=== PATIENT | male | born 1970 | race Caucasian/White ===

== ENCOUNTER 2020-01-02 12:57 | Emergency (ER) | payer OTHER ==
[~2020-01-02] VITALS: Ht 177.8 cm; Wt 86.4 kg
[2020-01-02] MEDS ORDERED: WATER IV ONE ×3 (13:15→19:15)
[2020-01-02] MEDS ORDERED: ACETYLCYSTEINE IV ONE ×3 (13:15→19:15)
[2020-01-02] MEDS ORDERED: DEXTROSE 5% IV ONE ×3 (13:15→19:15)
[2020-01-02 13:36] LABS: BASOPHILS % (AUTO) 0.4 % (0.0-2.0); EOSINOPHILS % (AUTO) 0.1 % (1.0-6.0); HEMATOCRIT 45.3 % (41-53); HEMOGLOBIN 15.8 g/dL (13.5-17.5); LYMPHOCYTES # (AUTO) 1.2 K/uL (1.0-4.8); LYMPHOCYTES % (AUTO) 10.3 % (22.0-44.0); MEAN CORPUSCULAR HEMOGLOBIN 31.8 pg (26.0-34.0); MEAN CORPUSCULAR HGB CONC 34.9 G/dL (31.0-37.0); MEAN CORPUSCULAR VOLUME 91 fL (80-100); MONOCYTES # (AUTO) 0.6 K/uL (0.1-1.0); MONOCYTES % (AUTO) 5.1 % (2.0-9.0); NEUTROPHILS # (AUTO) 9.4 K/uL (1.8-7.7); NEUTROPHILS % (AUTO) 84.1 % (40.0-70.0); PLATELET COUNT (AUTO) 342 K/uL (150-450); RED BLOOD CELL COUNT(AUTO) 4.97 MIL/uL (4.50-5.90); RED CELL DISTRIBUTION WIDTH 12.7 % (11.5-14.5)
[2020-01-02] MEDS ORDERED: LISI-661 PO (13:37)
[2020-01-02 13:44] LABS: ANION GAP 19 mmol/L (8-16); CALCIUM, TOTAL 9.1 mg/dL (8.8-10.5); CARBON DIOXIDE 19 mmol/L (22-29); CHLORIDE 96 mmol/L (98-107); CREATININE 1.37 mg/dL (0.60-1.30); GLOMERULAR FILTR. RATE CALC 56 mL/min (>60); GLUCOSE,RANDOM 194 mg/dL (70-110); POTASSIUM 3.4 mmol/L (3.5-5.1); SODIUM SERUM 134 mmol/L (136-145); UREA NITROGEN, BLOOD 14 mg/dL (7-18)
[2020-01-02] MEDS: ACETYLCYSTEINE IV ONE ×2 (13:47→14:48)
[2020-01-02] MEDS: DEXTROSE 5% IV ONE ×2 (13:47→14:48)
[2020-01-02] MEDS: WATER IV ONE ×2 (13:47→14:48)
[2020-01-02] MEDS: SODIUM CHLORIDE 0.9% 1,000 ML IV ONE (13:47)
[2020-01-02 13:57] LABS: SALICYLATE 0.8 mg/dL (2.8-20.0)
[2020-01-02 14:07] LABS: ALANINE AMINOTRANSFERASE 68 U/L (12-78); ALBUMIN 4.3 g/dL (3.4-5.0); ALKALINE PHOSPHATASE 76 U/L (46-116); ASPARTATE AMINOTRANSFERASE 27 U/L (15-37); BILIRUBIN,TOTAL 1.3 mg/dL (0.1-1.0); TOTAL PROTEIN, SERUM 7.5 g/dL (6.4-8.2)
[2020-01-02 14:12] LABS: ACETAMINOPHEN 367 mcg/mL (10-30)
[2020-01-02] MEDS ORDERED: LORazepam 2 MG/ML VIAL ONE (15:46)
[2020-01-02] MEDS ORDERED: HALOPERIDOL LACTATE 5 MG/ML VIAL ONE (15:46)
[2020-01-02] MEDS ORDERED: DiphenhydrAMINE HCL 50 MG/ML VIAL ONE (15:48)
[2020-01-02 15:53] LABS: PROTHROMBIN TIME 10.2 SEC (9.4-11.6)
[2020-01-02] MEDS: DiphenhydrAMINE HCL 50 MG/ML VIAL IM ONE (16:00)
[2020-01-02] MEDS: LORazepam 2 MG/ML VIAL IM ONE (16:00)
[2020-01-02] MEDS: HALOPERIDOL LACTATE 5 MG/ML VIAL IM ONE (16:01)
[2020-01-02 16:39] LABS: APPEARANCE,URINE CLEAR (CLEAR); BILIRUBIN,URINE NEGATIVE (NEGATIVE); GLUCOSE, URINE (UA) 250 mg/dL (NEGATIVE); KETONES,URINE >=80 mg/dL (NEGATIVE); LEUKOCYTE ESTERASE ,URINE NEGATIVE (NEGATIVE); NITRATE,URINE NEGATIVE (NEGATIVE); OCCULT BLOOD,URINE NEGATIVE (NEGATIVE); PROTEIN,URINE POS 1+ (NEGATIVE); UROBILINOGEN,URINE 0.2 mg/dL (<=1.0)
[2020-01-02 16:45] LABS: AMPHET/METH SCREEN,URINE NEGATIVE (NEGATIVE); BARBITURATE SCREEN, URINE NEGATIVE (NEGATIVE); BENZODIAZEPINES SCREEN,URINE NEGATIVE (NEGATIVE); CANNABINOID SCREEN,URINE POSITIVE (NEGATIVE); COCAINE SCREEN,URINE NEGATIVE (NEGATIVE); METHADONE SCREEN, URINE NEGATIVE (NEGATIVE); OPIATE SCREEN,URINE NEGATIVE (NEGATIVE)
[2020-01-02 16:46] LABS: PHENCYCLIDINE SCREEN,URINE NEGATIVE (NEGATIVE)
[2020-01-02 16:48] LABS: BACTERIA,URINE None Seen /HPF (None Seen); RBC,URINE 0-2 /HPF (0-2); SQUAMOUS EPITHELIAL CELL,UR None Seen /LPF (None Seen); WBC,URINE 0-2 /HPF (0-5)
[2020-01-02 17:26] VITALS: BP 120/71
== END 2020-01-02 17:48 | disposition short-term general hospital (02) ==
LOC: EMS 12:59
DX: T39.1X2A Poisoning by 4-Aminophenol derivatives, intentional self-harm, initial encounter (principal); T46.4X2A Poisoning by angiotensin-converting-enzyme inhibitors, intentional self-harm, initial encounter; I10 Essential (primary) hypertension; Z79.899 Other long term (current) drug therapy; Y92.89 Other specified places as the place of occurrence of the external cause
CPT/HCPCS: 36415; 71045; 80053; 80307; 81001; 82962; 85025; 85610; 85730; 93005; 96365; 96366; 96372; 99291; G0481; J0132; J1200; J1630; J2060; J7030; J7060 ×2; G0480